=== PATIENT | female | born 1975 | race Caucasian/White ===

== ENCOUNTER 2021-04-14 03:31 | Emergency (ER) | payer OTHER ==
[~2021-04-14] VITALS: Ht 167.6 cm; Wt 63.5 kg
[2021-04-14 03:39] VITALS: BP_SYST 136
[2021-04-14] MEDS ORDERED: cefTRIAXone 1 GM in LIDOCAINE 1%, 20 ML MDV 2.1 ML IM ONE (04:00)
[2021-04-14] MEDS ORDERED: KETOROLAC TROMETHAMINE 30 MG VIAL IM ONE (04:00)
[2021-04-14] MEDS ORDERED: KETOROLAC TROMETHAMINE 30 MG VIAL ONE (04:10)
[2021-04-14] MEDS ORDERED: AMOX500C2 PO (05:19)
[2021-04-14] MEDS ORDERED: IBUP-1969 PO (05:20)
[2021-04-14 05:25] VITALS: BP_SYST 136
== END 2021-04-14 05:25 | disposition home or self-care (01) ==
LOC: SED 03:31
DX: K05.10 Chronic gingivitis, plaque induced (principal); G44.209 Tension-type headache, unspecified, not intractable; Z79.899 Other long term (current) drug therapy
CPT/HCPCS: 96372; 99284; J0696; J1885; J2001